=== PATIENT | male | born 1945 | race Caucasian/White ===

== ENCOUNTER → 2017-10-08 | Outpatient (CLI) | payer MEDICARE, BC ==
[2014-09-14 14:18] VITALS: BP 127/81
[~2017-10-08] MED LIST: ALBU18HF IH; ALPR1TAB6 PO; AMLO5TAB2 PO; ASPI-482 PO; AZIT250T PO; BACL10TA PO; CARV3.122 PO; FLUO20CA8 PO; FLUT1DIS3 IH; HYDR-2165 PO; METO25TA2 PO; NORT25CA PO; PRED50TA PO
--- NOTE | 2017-10-08 16:46 | RAD ---
Examination: CT of the abdomen pelvis without contrast HISTORY: History of abdominal distention, bloating COMPARISON: None available TECHNIQUE: Axial CT images of the abdomen pelvis were performed without contrast. Coronal and sagittal reformats are performed Exposure: One or more of the following individualized dose reduction techniques were utilized for this examination: 1. Automated exposure control 2. Adjustment of the mA and/or kV according to patient size 3. Use of iterative reconstruction technique FINDINGS: The bibasilar lungs are clear. No evidence of free air identified in the abdomen. The evaluation of solid organs is limited due to lack of IV contrast. The visualized bowel is limited due to lack of oral contrast. Small cystic structures identified in the left lobe of the liver the largest measuring 7 mm probably cysts however evaluation is limited without IV contrast and due to small size. Calcified splenic granulomas identified. The stomach is mildly distended. There is some hyperdensity identified within the stomach and the posterior part of the duodenum probably hyperdense food material. The visualized pancreas grossly appears unremarkable. The small bowel is nondilated. Feces and gas noted in the colon. Changes of appendectomy. Feces and gas noted in the colon. Punctate intrarenal collecting system calculi identified in the right and left kidneys. There is minimal fat stranding identified about the bilateral kidneys. Urinary bladder is mildly distended. Central prostatic calcifications identified. Moderate aortic atherosclerosis. Moderate degenerative changes lumbar spine. IMPRESSION: 1. Bilateral nephrolithiasis. Minimal fat stranding identified about the bilateral kidneys, nonspecific could be due to medical renal disease. 2. Small subcentimeter cystic structures identified in the left lobe of the liver probably cyst however examination limited without contrast. Electronically signed by: Wilder Dunbar MD (10/08/2017 4:42 PM) [id number]
== END | disposition home or self-care (01) ==
LOC: CT 16:08
PROVIDERS: ATTEND Nurse Practitioner Family
DX: N20.0 Calculus of kidney (principal); I70.0 Atherosclerosis of aorta; N32.89 Other specified disorders of bladder
CPT/HCPCS: 74176

== ENCOUNTER → 2017-10-25 | Outpatient (CLI) | payer MEDICARE, BC ==
[2014-09-14 14:18] VITALS: BP 127/81
[~2017-10-25] MED LIST changes: +IOHEXOL 300 MG/ML 75 ML VIAL. IV ONE
[2017-10-25 10:53] LABS: ALBUMIN 3.1 g/dL (3.4-5.0); ALBUMIN/GLOBULIN RATIO 0.8 (1.0-1.7); CREATININE 1.1 mg/dL (0.7-1.3); POTASSIUM 3.9 mmol/L (3.5-5.1); TOTAL BILIRUBIN 0.2 mg/dL (0.2-1.0); TOTAL PROTEIN 6.9 g/dL (6.4-8.2)
--- NOTE | 2017-10-25 12:28 | RAD ---
EXAM: Neck CT with intravenous contrast. HISTORY: Dysphagia. TECHNIQUE: Computed tomographic images of the neck were obtained following the administration of 75 cc Omnipaque 300 intravenous contrast. Multiplanar reformatting was performed. *One or more of the following individualized dose reduction techniques were utilized for this examination: 1. Automated exposure control. 2. Adjustment of the mA and/or kV according to patient size. 3. Use of iterative reconstruction technique. COMPARISON: None. FINDINGS: The airway is midline and widely patent. Parotid, submandibular and thyroid glands are unremarkable. There is partially calcified atherosclerotic plaque involving the carotid bulbs and proximal internal carotid arteries, with less than 50% stenosis. The vertebral arteries are widely patent. The visualized portions the brain are unremarkable. There is evidence of lens surgery. The paranasal sinuses are clear. There is a left ariel bullosa. The ostiomeatal units are patent. There is no evidence of neck lymphadenopathy. There is minimal biapical emphysema. There is calcified granuloma within the posterior right upper lobe. There is no evidence of mediastinal lymphadenopathy. There is degenerative change within the cervical spine. This includes disc bulges with endplate remodeling, facet and uncovertebral arthropathy at multiple levels. This results in mild right and moderate left foraminal stenosis at C3-C4, mild right foraminal stenosis at C4-C5, and minimal left foraminal stenosis at C5-C6. There is no suspicious osseous lesion. There is minimal listhesis at multiple cervical an upper thoracic levels. There are chronic mild anterior wedge deformities of T3 and T4. IMPRESSION: No acute finding or finding to correlate with reported dysphagia. Electronically signed by: Marline García MD (10/25/2017 12:24 PM) [place] [id number]
== END | disposition home or self-care (01) ==
LOC: CT 09:56
PROVIDERS: ATTEND Nurse Practitioner Family
DX: M48.02 Spinal stenosis, cervical region (principal); J43.9 Emphysema, unspecified; J84.10 Pulmonary fibrosis, unspecified; M12.88 Other specific arthropathies, not elsewhere classified, other specified site
CPT/HCPCS: 36415; 70491; 80053; Q9967

== ENCOUNTER → 2018-05-08 | Outpatient (CLI) | payer MEDICARE, BC ==
[2014-09-14 14:18] VITALS: BP 127/81
[~2018-05-08] MED LIST changes: -ALBU18HF IH; +ALBU2.5V8 IH; -AMLO5TAB2 PO; +AMLO5TAB7 PO; -CARV3.122 PO; +CARV3.1230 PO; -IOHEXOL 300 MG/ML 75 ML VIAL. IV ONE
--- NOTE | 2018-05-08 12:02 | RAD ---
EXAM: Left lower extremity arterial Doppler sonogram. HISTORY: Decreased pulses. Claudication. TECHNIQUE: Locke scale and color Doppler sonographic imaging of the left lower extremity arteries with spectral analysis was performed. COMPARISON: None. FINDINGS: There are biphasic waveforms throughout the majority of the left lower extremity arteries and triphasic waveforms within the distal superficial femoral and popliteal arteries. There is minimal atherosclerotic plaque throughout the left lower extremity arteries. No severe stenosis or occlusion is seen. The peak systolic velocities measure 101 cm/s within the common femoral artery, 88 cm/s within the deep femoral artery, 107 cm/s within the proximal superficial femoral artery, 110 cm/s within the mid superficial femoral artery, 69 cm/s within the distal superficial femoral artery, 63 cm/s within the popliteal artery, 77 cm/s within the proximal posterior tibial artery, 83 cm/s within the distal posterior tibial artery, 62 cm/s within the peroneal artery, 96 cm/s within the anterior tibial artery, and 122 cm/s within the dorsalis pedis artery. IMPRESSION: Minimal partially calcified atherosclerotic plaque within the lower extremity arteries. No severe stenosis or occlusion is seen. Electronically signed by: Marline García MD (05/08/2018 11:58 AM) [place] [id number]
== END | disposition home or self-care (01) ==
LOC: US 10:28
PROVIDERS: ATTEND Nurse Practitioner Family
DX: I70.292 Other atherosclerosis of native arteries of extremities, left leg (principal)
CPT/HCPCS: 93926

== ENCOUNTER → 2018-08-13 | Outpatient (CLI) | payer MEDICARE, BC ==
[2014-09-14 14:18] VITALS: BP 127/81
[~2018-08-13] MED LIST changes: +AMLO5TAB10 PO; -AMLO5TAB7 PO
--- NOTE | 2018-08-13 15:12 | RAD ---
Examination: Ultrasound thyroid HISTORY: History of trouble swallowing, correlate Comparison: None available FINDINGS: The right lobe of thyroid gland measures 3.3 x 1.3 x 1.2 cm. The left lobe of thyroid gland measures 3.6 x 1.7 x 1 point cm. Tiny cystic structures identified in the right and left lobes of thyroid gland probably colloid cysts with the largest measuring 3.3 mm. The isthmus measures 2.2 mm in AP dimension. IMPRESSION: 1. Tiny subcentimeter colloid cysts right and left lobes of thyroid gland. Otherwise unremarkable exam. Electronically signed by: Wilder Dunbar MD (08/13/2018 3:09 PM) [id number]
--- NOTE | 2018-08-13 15:13 | RAD ---
EXAM: Carotid Doppler sonogram. HISTORY: Dizziness. TECHNIQUE: Locke scale and color Doppler sonographic evaluation of the neck with spectral waveform analysis was performed and static images are submitted for review. FINDINGS: There is mild atherosclerotic plaque throughout the common carotid arteries, carotid bulbs and proximal internal and external carotid arteries. There is common carotid artery intimal wall thickening. The peak systolic velocity within the right common carotid artery is 1 heart and 14 cm/sec. The peak systolic velocity within the right internal carotid artery is 85 cm/sec and the end diastolic velocity within the right internal carotid artery is 19 cm/sec. The right ICA/CCA ratio is 0.83. The peak systolic velocity within the left common carotid artery is 112 cm/sec. The peak systolic velocity within the left internal carotid artery is 80 cm/sec and the end diastolic velocity within the left internal carotid artery is 19 cm/sec. The left ICA/CCA ratio is 0.84. There is normal antegrade flow within both vertebral arteries. IMPRESSION: 1. No Doppler evidence of hemodynamically significant stenosis involving the carotid or vertebral arteries. 2. Mild atherosclerotic plaque throughout the common carotid arteries, carotid bulbs and proximal internal and external carotid arteries. There is common carotid artery intimal wall thickening. PQRS Compliance Statement - Stenosis calculations for CT, MR and conventional angiography are based upon measurement of the distal ICA diameter in accordance with the NASCET methodology. Stenosis calculations for carotid ultrasound studies are derived from validated velocity criteria which are known to correlate with the NASCET methodology. Electronically signed by: Marline García MD (08/13/2018 3:10 PM) [facility]
== END | disposition home or self-care (01) ==
LOC: US 12:43
PROVIDERS: ATTEND Nurse Practitioner Family
DX: E04.2 Nontoxic multinodular goiter (principal); I65.23 Occlusion and stenosis of bilateral carotid arteries; H81.43 Vertigo of central origin, bilateral
CPT/HCPCS: 76536; 93880

== ENCOUNTER → 2019-06-17 | Outpatient (CLI) | payer MEDICARE, BC ==
[2014-09-14 14:18] VITALS: BP 127/81
[~2019-06-17] MED LIST changes: +FLUO20CA20 PO; -FLUO20CA8 PO
--- NOTE | 2019-06-17 16:17 | RAD ---
CHEST PA LATERAL History: Shortness of breath Comparison: June 15, 2014 Findings: 2 views of the chest are submitted. There is atherosclerotic calcification near aortic arch. There are again some small granulomas bilaterally. There is no pneumothorax, significant dependent pleural fluid, or lobar consolidation. There is probable mild left base atelectasis. Cardiac silhouette is stable, within normal limits. There may be emphysema. Impression: 1. There is no lobar consolidation, likely mild left base atelectasis. There may be emphysema. Electronically signed by: Andrea Smiley MD (06/17/2019 4:14 PM) [id number]
== END | disposition home or self-care (01) ==
LOC: DXRAD 13:05
PROVIDERS: ATTEND Family Medicine
DX: I70.0 Atherosclerosis of aorta (principal); J84.10 Pulmonary fibrosis, unspecified
CPT/HCPCS: 71046